=== PATIENT | male | born 1975 | race Caucasian/White ===

== ENCOUNTER 2023-10-20 23:00 | Emergency (ER) | payer OTHER ==
[~2023-10-20] VITALS: Ht 180.3 cm; Wt 172.4 kg
[2023-10-20 23:00] VITALS: BP_SYST 0; PULSE 0; RESP 0; TEMP 97.6; O2SAT 0
[2023-10-21 03:00] VITALS: BP_SYST 0; PULSE 0; RESP 0; O2SAT 0
== END 2023-10-20 23:12 ==
LOC: MED 23:00
DX: I46.9 Cardiac arrest, cause unspecified (principal); J96.90 Respiratory failure, unspecified, unspecified whether with hypoxia or hypercapnia; I10 Essential (primary) hypertension
CPT/HCPCS: 31500; 82948; 92950; 99285